=== PATIENT | female | born 1955 | race Caucasian/White ===

== ENCOUNTER 2016-11-25 21:59 | Emergency (ER) | payer SELFPAY ==
[2016-11-25 22:17] VITALS: BP 142/70; PULSE 70; BMI 33.0
[2016-11-25] MEDS ORDERED: FLUORESCEIN NA 1 EA STRIP ONE ×2 (23:28→23:29)
--- NOTE | 2016-11-25 23:39 | PDOC ---
History of Present Illness - General Chief Complaint: Eye Problem Stated Complaint: LEFT EYE REDNESS Time Seen by Provider: 11/25/16 22:02 - History of Present Illness Initial Comments: This 61-year-old woman presents with a one-day history of redness of the conjunctiva of her left eye. She has mild discomfort in the eye but no significant pain. She denies blurring of vision in the left eye. She denies any trauma to the area . There has been no crusting of eyelashes margin or purulent discharge from the eye. There is no redness or discomfort in the right eye. She denies recent fever/chills, sore throat, runny nose. No previous history of this symptom. The patient takes 81 milligrams of aspirin daily but no other anticoagulation medication. She has not had any recent easy bruising or prolonged bleeding. Past History - Past Medical History Allergies/Adverse Reactions: Allergies Allergy/AdvReac Type Severity Reaction Status Date / Time No Known Drug Allergies Allergy Severe Verified 11/25/16 22:02 Home Medications: Ambulatory Orders Lisinopril [Prinivil] 20 mg PO DAILY 04/23/11 Aspirin [ASA -] 81 mg PO DAILY 12/30/12 Omeprazole [Prilosec (RX)] 40 mg PO DAILY 12/30/12 Albuterol Sulfate Inhaler - [Ventolin Hfa Inhaler -] 1 - 2 inh PO QID PRN Ascorbate Calcium [Vitamin C] 500 mg PO DAILY 11/25/16 Anemia: No Asthma: Yes Cancer: No Cardiac Disorders: No CVA: No COPD: Yes CHF: No Dementia: No Diabetes: No GI Disorders: No Disorders: No HTN: Yes Hypercholesterolemia: No Liver Disease: No Seizures: No Thyroid Disease: No - Surgical History Abdominal Surgery: No Appendectomy: No Cardiac Surgery: No Cholecystectomy: No Lung Surgery: No Neurologic Surgery: No Orthopedic Surgery: Yes (RIGHT KNEE,LEFT SHOULDER) - Suicide/Smoking/Psychosocial Hx Smoking Status: No Smoking History: Never smoked Number of Cigarettes Smoked Daily: 0 Hx Alcohol Use: No Drug/Substance Use Hx: No Substance Use Type: None Hx Substance Use Treatment: No Review of Systems - Review of Systems Able to Perform ROS?: Yes Comments:: 12 point review of systems is negative except for what is noted in the history of present illness *Physical Exam - Vital Signs Last Vital Signs Temp Pulse Resp BP Pulse Ox 70 15 142/70 98 11/25/16 22:01 11/25/16 22:01 11/25/16 22:01 11/25/16 22:01 - Physical Exam Comments: GENERAL: Adult female, alert and oriented 3 in no acute distress HEAD: Normal with no signs of trauma. EYES: PERRLA, EOMI, sclera anicteric, right conjunctiva clear. Left conjunctiva : Sub conjunctival hemorrhage of medial aspect; Anterior chambers/pupils normal bilaterally ENT: Ears normal, nares patent, oropharynx clear without exudates. Moist mucous membranes. SKIN: Warm, Dry, normal turgor, no rashes or lesions noted. Fluoroscein staining performed: No evidence of corneal abrasion/ulcer evident Medical Decision Making - Medical Decision Making Clinical presentation most consistent with subcutaneous conjunctival hemorrhage of the left eye. No evidence of corneal abrasion/ulcer. No evidence of change in visual acuity of the left eye. Patient advised to use artificial tears as needed and to follow-up with her child and family services worker within the next 1-2 days She should continue to hold her daily 81 mg of aspirin until seen by the child and family services worker. *DC/Admit/Observation/Transfer Diagnosis at time of Disposition: Subconjunctival hemorrhage of left eye - Discharge Dispostion Disposition: HOME Condition at time of disposition: Stable - Referrals Referrals: Shayy Heard [Primary Care Provider] - - Patient Instructions Printed Discharge Instructions: DI for Subconjunctival Hemorrhage Additional Instructions: Keep head elevated at night Continue to hold aspirin You can use artificial tears as needed Avoid excessive coughing/blowing of nose/strenuous upper body activity Follow-up with your eye doctor within the next 48 hours Return to ER if you have change in vision or increase in pain in the eye
== END 2016-11-25 23:44 | disposition home or self-care (01) ==
LOC: FER 21:59
DX: J45.909 Unspecified asthma, uncomplicated (principal); I10 Essential (primary) hypertension
CPT/HCPCS: 99281-25